=== PATIENT | male | born 1975 | race Caucasian/White ===

== ENCOUNTER 2018-09-26 22:54 | Emergency (ER) | payer MEDICAID, OTHER | END 2018-09-27 07:23 | disposition home or self-care (01) | LOC: FTE 22:54 | DX: S61.217A Laceration without foreign body of left little finger without damage to nail, initial encounter (principal); W26.0XXA Contact with knife, initial encounter; Y92.511 Restaurant or cafe as the place of occurrence of the external cause | CPT/HCPCS: 12001; 99283-25 ==

== ENCOUNTER 2018-10-01 07:10 | Emergency (ER) | payer MEDICAID | END 2018-10-01 09:09 | disposition home or self-care (01) | LOC: FTE 07:10 | DX: Z48.01 Encounter for change or removal of surgical wound dressing (principal) | CPT/HCPCS: 99281 ==

== ENCOUNTER → 2018-10-04 | Emergency (ER) | payer MEDICAID | END | disposition home or self-care (01) | LOC: FTE 06:33 | DX: Z48.01 Encounter for change or removal of surgical wound dressing (principal) | CPT/HCPCS: 99283; Z7502 ==